=== PATIENT | female | born 1955 | race Two or more races ===

== ENCOUNTER 2022-06-02 09:58 | Outpatient (CLI) | payer OTHER | END 2022-06-02 10:04 | disposition home or self-care (01) | LOC: LAB 09:58 | PROVIDERS: ATTEND Orthopaedic Surgery | DX: N39.0 Urinary tract infection, site not specified (principal); E78.2 Mixed hyperlipidemia; D68.9 Coagulation defect, unspecified; R07.9 Chest pain, unspecified ==

== ENCOUNTER 2022-06-04 08:27 | Inpatient (IN) | payer OTHER ==
[2022-06-04] MEDS ORDERED: LOSARTAN-HCTZ1 EAC1 PO (11:23)
[2022-06-04] MEDS ORDERED: UNITHROID100 MCG PO (11:24)
[2022-06-10] MEDS ORDERED: TRELEGY ELLIPT1 EAC1 (14:43)
[2022-06-10] MEDS ORDERED: RESTORIL15 MG (14:43)
[2022-06-10] MEDS ORDERED: PREDNISOLO15 MG/5 ML (14:43)
[2022-06-10] MEDS ORDERED: MONTELUKAST SOD10 MG (14:44)
[2022-06-10] MEDS ORDERED: HYDRALAZINE HCL25 MG (14:44)
[2022-06-12] MEDS ORDERED: NORFLEX100MG PO (13:24)
[2022-06-12] MEDS ORDERED: GABAPENTIN100 MG PO (13:24)
[2022-06-12] MEDS ORDERED: XARELTO10 MG PO (13:24)
[2022-06-12] MEDS ORDERED: ULTRAM50 MG PO (13:25)
== END 2022-06-12 18:08 | DRG 470 ==
LOC: EDUNIT# 11:00 → O/R 06-10 07:00 → SURG 06-10 07:00
PROVIDERS: ADMIT Orthopaedic Surgery; ATTEND Orthopaedic Surgery
PROC: 0SRC0J9 Replacement of Right Knee Joint with Synthetic Substitute, Cemented, Open Approach (ICD-10-PCS; principal; 2022-06-10 10:00)
DX: M17.11 Unilateral primary osteoarthritis, right knee (principal); D62 Acute posthemorrhagic anemia; M85.661 Other cyst of bone, right lower leg; I10 Essential (primary) hypertension; E03.9 Hypothyroidism, unspecified

== ENCOUNTER 2023-03-16 12:44 | Inpatient (IN) | payer OTHER ==
[~2023-03-16] VITALS: Ht 172.7 cm; Wt 54.4 kg
[~2023-03-16 12:44] MED LIST: GABAPENTIN100 MG PO; HYDRALAZINE HCL25 MG; LOSARTAN-HCTZ1 EAC1 PO; MONTELUKAST SOD10 MG; NORFLEX100MG PO; PREDNISOLO15 MG/5 ML; RESTORIL15 MG; TRELEGY ELLIPT1 EAC1; ULTRAM50 MG PO; UNITHROID100 MCG PO; XARELTO10 MG PO
[2023-03-17] MEDS ORDERED: COZAAR100 MG PO (10:17)
[2023-03-24] MEDS ORDERED: DEXAMETHAS0.5 MG/5 M (16:01)
[2023-03-24] MEDS ORDERED: TRELEGY ELLIPT1 EAC1 (16:01)
[2023-03-24] MEDS ORDERED: DICLOFENAC POTA50 MG (16:01)
[2023-03-24] MEDS ORDERED: MONTELUKAST SOD10 MG (16:01)
[2023-03-24] MEDS ORDERED: HYDRALAZINE HCL50 MG (16:01)
[2023-03-26] MEDS ORDERED: NORFLEX100MG PO (13:17)
[2023-03-26] MEDS ORDERED: OXYC1TAB9 PO (13:17)
[2023-03-26] MEDS ORDERED: GABAPENTIN100 MG PO (13:17)
[2023-03-26] MEDS ORDERED: XARELTO10 MG PO (13:17)
[2023-03-26] MEDS ORDERED: TRAMADOL HCL50 MG PO (13:31)
== END 2023-03-26 17:08 | DRG 470 ==
LOC: SURG 03-24 07:40 → O/R 03-24 07:40 → SURG 03-24 08:00
PROVIDERS: ADMIT Orthopaedic Surgery; ATTEND Orthopaedic Surgery
PROC: 0SRD0J9 Replacement of Left Knee Joint with Synthetic Substitute, Cemented, Open Approach (ICD-10-PCS; principal; 2023-03-24 10:15)
DX: M17.12 Unilateral primary osteoarthritis, left knee (principal); D62 Acute posthemorrhagic anemia; M85.662 Other cyst of bone, left lower leg; I10 Essential (primary) hypertension; E03.9 Hypothyroidism, unspecified; Z96.652 Presence of left artificial knee joint

== ENCOUNTER → 2023-04-07 | Emergency (ER) | payer OTHER ==
[~2023-04-07] MED LIST changes: +COZAAR100 MG PO; +DEXAMETHAS0.5 MG/5 M; +DICLOFENAC POTA50 MG; +HYDRALAZINE HCL50 MG; +OXYC1TAB9 PO; +TRAMADOL HCL50 MG PO
== END | disposition left against medical advice (07) ==
LOC: ER 12:21
DX: Z53.21 Procedure and treatment not carried out due to patient leaving prior to being seen by health care provider (principal)